=== PATIENT | male | born 1975 | race Asian ===

== ENCOUNTER 2018-01-04 19:21 | Emergency (ER) | payer SELFPAY ==
[~2018-01-04] VITALS: Ht 170.2 cm; Wt 75.3 kg
[2018-01-04 19:30] VITALS: BP_SYST 191
[2018-01-04] MEDS ORDERED: cloNIDine HCL 0.1 MG TABLET PO ONE ×2 (20:30→21:15)
[2018-01-04 22:00] VITALS: BP_SYST 169
== END 2018-01-04 22:00 ==
LOC: SED 19:21
DX: R42 Dizziness and giddiness (principal); R22.0 Localized swelling, mass and lump, head; E11.9 Type 2 diabetes mellitus without complications; I10 Essential (primary) hypertension
CPT/HCPCS: 99283